=== PATIENT | male | born 1975 ===

== ENCOUNTER 2017-12-20 14:04 | Emergency (ER) | payer MEDICAID ==
[2017-12-20 14:17] VITALS: BP 142/91; PULSE 89; RESP 16; TEMP 98.4; O2SAT 98
[2017-12-20] MEDS ORDERED: Epinephrine /Lidocaine HCL 1:100,000/2% 30 ml INJ ONE (14:30)
[2017-12-20] MEDS ORDERED: Oxycodone/Acetaminophen 5/325 mg Tab PO STA (14:30)
[2017-12-20] MEDS ORDERED: Oxycodone/Acetaminophen 5/325 mg Tab ONE (14:37)
--- NOTE | 2017-12-20 15:03 | C.PDOC ---
History Of Present Illness 42yo male, with no past medical history, presents to ER with complaints of an abscess to his groin for the past 3 days. He reports taking some antibiotics from [facility] without relief. Pt went to see his PMD today, he was instructed to come to the ER for evaluation. Patient denies any fever, chills, dysuria, perirectal pain, testicular pain, dysuria, or n/v. PMD:Dr. Nara Christensen Time Seen by Provider: 12/20/17 14:17 Chief Complaint (Nursing): Abnormal Skin Integrity History Per: Patient, Family History/Exam Limitations: no limitations Onset/Duration Of Symptoms: Days (3) Current Symptoms Are (Timing): Still Present Quality Of Symptoms: Swollen Additional History Per: Patient Past Medical History Reviewed: Historical Data, Nursing Documentation, Vital Signs Vital Signs: Last Vital Signs Temp 98.4 F 12/20/17 14:14 Pulse 89 12/20/17 14:14 Resp 16 12/20/17 14:14 BP 142/91 H 12/20/17 14:14 Pulse Ox 98 12/20/17 15:18 - Medical History PMH: No Chronic Diseases Surgical History: No Surg Hx Family History: States: No Known Family Hx - Social History Hx Tobacco Use: No Hx Alcohol Use: No Hx Substance Use: No - Immunization History Hx Tetanus Toxoid Vaccination: No Hx Influenza Vaccination: No Hx Pneumococcal Vaccination: No Review Of Systems Except As Marked, All Systems Reviewed And Found Negative. Constitutional: Negative for: Fever, Chills Skin: Positive for: Other (abscess to left groin area) Physical Exam - Physical Exam Appears: Non-toxic, No Acute Distress Skin: Warm Head: Atraumatic, Normacephalic Eye(s): bilateral: Normal Inspection, EOMI Nose: Normal Oral Mucosa: Moist Neck: Normal ROM, Supple Chest: Symmetrical Respiratory: No Accessory Muscle Use Gastrointestinal/Abdominal: Soft Male Genital: No Testicular Tenderness, Other (3x2 cm area of erythema, tenderness and swelling to left inferior scrotum.) Extremity: Normal ROM Neurological/Psych: Oriented x3, Normal Speech ED Course And Treatment O2 Sat by Pulse Oximetry: 98 (RA) Pulse Ox Interpretation: Normal Progress Note: Patient given Motrin 600mg PO and 1 tab percocet for pain relief. Patient seen and evaluated by Dr. Ayala , agreed upon plan and treatment. For incision and drainage, Lidocaine with epi used for local anesthesia. Patient was able to tolerate procedure well; he reports marked improvement in his symptoms. Patient remains awake, alert and is in no acute distress. Instructed to follow up with primary medical doctor or clinic in 2 days for further evaluation. Take medications as prescribed. Return to the emergency department at any time if symptoms persist or worsen. - Incision & Drainage Of Abscess Anesthesia: Lidocaine 1%, With Epi Used During Procedure: Continuous Pulse Oximetry Prep Used: Sterile Water, Betadine Procedure: Incised W/Scalpel Blade#: (11), Drained Pus, Irrigated Cavity W/ Saline, Probed To Break Up Loculations, Packed W/Gauze (.25 inch), Cultures Obtained And Sent To Lab Disposition - Disposition Disposition: HOME/ ROUTINE Disposition Time: 15:03 Condition: STABLE Additional Instructions: Wound check in 2 days. Return to ER sooner if symptoms worsen. 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 - Scribe Statement The provider has reviewed the documentation as recorded by the Scribe (Belkis Segura) Provider Attestation: All medical record entries made by the Scribe were at my direction and personally dictated by me. I have reviewed the chart and agree that the record accurately reflects my personal performance of the history, physical exam, medical decision making, and the department course for this patient. I have also personally directed, reviewed, and agree with the discharge instructions and disposition.
== END 2017-12-20 15:08 | disposition home or self-care (01) ==
LOC: C.ER 14:04
DX: N49.2 Inflammatory disorders of scrotum (principal)

== ENCOUNTER 2017-12-22 12:44 | Emergency (ER) | payer MEDICAID ==
[2017-12-22 13:19] VITALS: BP 128/84; PULSE 80; RESP 20; TEMP 98.1; O2SAT 99
--- NOTE | 2017-12-22 13:44 | C.PDOC ---
History Of Present Illness 42 y/o male presents to the ER for wound check to the left scrotum. Patient states that he had an I&D of an abscess in the left scrotum. Patient was discharged with prescriptions for Bactrim and Keflex. Of note, the wound culture did not show any growth after 24 hours. Patient notes that he feels better and he denies having any complaints at this time. Time Seen by Provider: 12/22/17 13:32 Chief Complaint (Nursing): Wound Check History Per: Patient History/Exam Limitations: no limitations Past Medical History Reviewed: Historical Data, Nursing Documentation, Vital Signs Vital Signs: Last Vital Signs Temp 98.1 F 12/22/17 13:17 Pulse 80 12/22/17 13:17 Resp 20 12/22/17 13:17 BP 128/84 12/22/17 13:17 Pulse Ox 99 12/22/17 15:49 - Medical History PMH: No Chronic Diseases Surgical History: No Surg Hx Family History: States: No Known Family Hx - Social History Hx Tobacco Use: No Hx Alcohol Use: No Hx Substance Use: No - Immunization History Hx Tetanus Toxoid Vaccination: No Hx Influenza Vaccination: No Hx Pneumococcal Vaccination: No Review Of Systems Except As Marked, All Systems Reviewed And Found Negative. Constitutional: Negative for: Fever, Chills Physical Exam - Physical Exam Appears: Non-toxic, No Acute Distress Skin: Normal Color, Warm, Other (packed abscess in left scrotum with no drainage and no bleeding) Head: Atraumatic, Normacephalic Eye(s): bilateral: Normal Inspection Male Genital: No Scrotal Swelling, Other (healing left scrotal abscess) Extremity: Normal ROM Neurological/Psych: Oriented x3, Normal Speech, Normal Cognition ED Course And Treatment O2 Sat by Pulse Oximetry: 99 (RA) Pulse Ox Interpretation: Normal Progress Note: Packing was removed with no difficulty. There was no purulent drainage. The wound was irrigated with normal saline and dressed with sterile dressing. Patient tolerated well. Patient has been discharged and and instructed to follow up with PMD in 1-2 days. Disposition - Disposition Disposition: HOME/ ROUTINE Disposition Time: 14:02 Condition: STABLE Additional Instructions: Follow up with your PMD within 1-2 days. Return to ED if feel worse. Continue medications as instructed. 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 - Scribe Statement The provider has reviewed the documentation as recorded by the Scribe Mehul Willett Provider Attestation All medical record entries made by the Scribe were at my direction and personally dictated by me. I have reviewed the chart and agree that the record accurately reflects my personal performance of the history, physical exam, medical decision making, and the department course for this patient. I have also personally directed, reviewed, and agree with the discharge instructions and disposition.
== END 2017-12-22 14:06 | disposition home or self-care (01) ==
LOC: C.ER 12:44
DX: Z48.00 Encounter for change or removal of nonsurgical wound dressing (principal)